=== PATIENT | female | born 1935 | race Caucasian/White ===

== ENCOUNTER 2016-07-20 14:18 | Inpatient (IN) | payer MEDICARE, OTHER ==
--- NOTE | ~2016-07-20 | CN ---
Consultation Report [facility] [address] [place]. [address] NAME: MISTY SHARPE : 35 STATUS : ADM IN PAT#: [id number] AGE: 81 ADM/REG DATE : 07/21/16 MR#: [id number] REPORT SERV DATE: 07/22/16 DICTATED BY: DONITA CONTRERAS DATE: 07/21/16 REPORT STATUS : Draft TRANSCRIBED BY: ANAT DATE: 07/21/16 CARDIOLOGY CONSULTATION DATE OF CONSULTATION: 07/21/2016 CHIEF COMPLAINT: Nausea, vomiting, and generalized weakness. REASON FOR CONSULTATION: Atrial fibrillation. SOURCE: The patient, her family, and the chart. HISTORY OF PRESENT ILLNESS: Ms. Sharpe is a very pleasant 81-year-old white woman with no significant past cardiac history. She was in her usual state of health, but over the last three to five weeks, she has noticed nausea, vomiting, diminished appetite, and generalized weakness. She has had chills recently but no fever. She has also noticed lower abdominal cramping. She has noticed decreased appetite particularly in association with taking Phenergan for the nausea and vomiting. She has not had any jaundice. No chest pain. No palpitations. She denies any GI blood loss. She has felt like she is smothering. REVIEW OF SYSTEMS: All other systems are negative. ALLERGIES: PENICILLINS AND SULFA. MEDICATIONS: At home included calcium, vitamin D, chlorthalidone, diazepam, dicyclomine, ezetimibe, hydrocodone, losartan, magnesium, meclizine, omeprazole, ondansetron, prednisone, promethazine, propranolol, rivaroxaban, and simvastatin. CARDIAC RISK FACTORS: Included hypertension, cholesterol, former tobacco. Denies diabetes or family history. SOCIAL HISTORY: The patient lives in [place], [place]. She is . She lives alone but her son lives next door. She has four children, who are alive and well. She is retired. FAMILY HISTORY: Negative for coronary artery disease at young age. PAST MEDICAL HISTORY: Significant for cervical cancer in 1978, treated with cobalt x-ray therapy, reportedly in remission. She has had hemorrhoids, small intestine surgery. She has a surgical hernia, which was not repaired; status post cataract surgery. 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 PHYSICAL EXAMINATION: Consultation Report [address] [place]. [address] NAME: MISTY SHARPE : 35 STATUS : ADM IN PAT#: [id number] AGE: 81 ADM/REG DATE : 07/21/16 MR#: [id number] REPORT SERV DATE: 07/22/16 DICTATED BY: DONITA CONTRERAS DATE: 07/21/16 REPORT STATUS : Draft TRANSCRIBED BY: ANAT DATE: 07/21/16 GENERAL: She is a well-developed, well-nourished, very elderly white woman, in mild acute respiratory distress. VITAL SIGNS: Blood pressure is 112/55, pulse 88, temperature is 98.7 degrees, and blood pressure is 112/55. HEENT: Sclerae anicteric. Lips without cyanosis. Carotids 2+ and symmetrical. No bruits. No JVD. No thyromegaly. Conjunctiva pale. LUNGS: Clear to auscultation. No use of accessory muscles. Increased respiratory rate. HEART: Regular rate and rhythm without murmur, gallop, or rub. ABDOMEN: Positive bowel sounds. Soft, nontender. Abdominal defect. EXTREMITIES: Pulses 2+ and symmetrical. No cyanosis, clubbing, or edema. BACK: No CVA tenderness. MUSCULOSKELETAL: Good tone. NEURO: Alert and oriented x3. IMAGING: The EKG earlier revealed atrial fibrillation with rapid ventricular response, otherwise, normal tracing. Telemetry now reveals sinus. LABORATORY EXAMINATION: CPK 159, MB 1.9, troponin I of 0.21. The blood gas pH 7.40, pCO2 of 30, PO2 of 117, oxygen saturation 97.9%. Sodium 140, potassium 3.8, chloride 106, CO2 of 21, glucose 91, BUN 25, creatinine 1.12, TSH of 1.59. The white count is 13.9, hemoglobin 12.2, hematocrit 35.3, and platelets 227,000. The lactate is 0.9. The urine culture, 75,000 gram negative bacilli to be identified. The CT of abdomen and pelvis reveals very large hernia defect on the right involving the lower anterior abdominal wall and anterior pelvic wall containing the majority of small bowel as well as the cecum, the ascending colon, and transverse colon, distention, fluid- filled small bowel loops within the hernia measuring up to 32 mm in diameter concerning for early or partial obstruction, gas and stool is present within the colon, chronic L1 compression fracture, mild to moderate spinal canal narrowing at the L1 superior endplate level, arthrosclerotic vascular disease, heavy calcification of the coronary arteries. The procalcitonin was 0.33 yesterday. IMPRESSION: 1. Nausea, vomiting, and weight loss. 2. Possible bowel obstruction. 3. Very large abdominal hernia. 4. Possible urinary tract infection. 5. Possible sepsis. 6. Paroxysmal atrial fibrillation, now in sinus rhythm. Probably due to the above medical problems. 7. CHADS2 score of 2 for age and hypertension. She is not currently a good candidate for anticoagulation due to possible need for surgery. The Xarelto is on hold. 8. Recurrent DVT. She was on Xarelto, held for procedures. 9. Cardiac risk factors including hypertension, cholesterol, and former tobacco. 10.Small elevation of troponin with normal CPK and MB, probably due to other medical Consultation Report [address] [address] NAME: MISTY SHARPE : 35 STATUS : ADM IN [facility]#: [id number] AGE: 81 ADM/REG DATE : 07/21/16 MR#: [id number] REPORT SERV DATE: 07/22/16 DICTATED BY: DONITA CONTRERAS DATE: 07/21/16 REPORT STATUS : Draft TRANSCRIBED BY: ANAT DATE: 07/21/16 illness. RECOMMENDATIONS: 1. Treat underlying illness. 2. Check D-dimer. 3. Agree with echocardiography. 4. EKG in sinus rhythm and again in a.m. 5. Check CPK and MB in a.m. 6. For recurrent atrial fibrillation with rapid ventricular response or hypertension, consider IV metoprolol or IV diltiazem. Additionally, her TSH was normal at 1.59. RAINA/ANAT Donita Contreras M.D. / [id number] CC: MD Antonio Whitten II
--- NOTE | ~2016-07-20 | PUL ---
[facility] [address] [place]. [address] NAME: MISTY GEE : 35 STATUS : DIS IN PAT#: [id number] AGE: 81 ADM/REG DATE : 07/21/16 MR#: [id number] REPORT SERV DATE: 07/31/16 DICTATED BY: ROSENDO BOLANOS DATE: 07/30/16 REPORT STATUS : Draft TRANSCRIBED BY: MODL DATE: 07/30/16 PULMONARY FUNCTION TEST PROCEDURE PERFORMED: Spirometry. The patient demonstrates good effort, though seems to have had some difficulty with reproducibility any of the flow volume loops. FINDINGS: FVC is 43% of predicted with an FEV1 of 0.54 liters or 32% of predicted. IMPRESSION: A very severe mixed ventilatory defect. The patient appears to have coexistence of restriction and obstruction with prolonged exhalation time. Consider formal measurement of lung volumes if clinically indicated. SHA/ANAT Rosendo Bolanos M.D. / [id number] CC: Rosi Murray MAX RUSSELL II
--- NOTE | ~2016-07-20 | EGD ---
EGD REPORT [facility] [address] [place] [address] NAME: AMBAR SHARPE : 35 STATUS : ADM IN PAT#: [id number] AGE: 81 ADM/REG DATE : 07/21/16 MR#: [id number] REPORT SERV DATE: 07/25/16 DICTATED BY: STEPHAN BURCIAGA DATE: 07/25/16 REPORT STATUS : Draft TRANSCRIBED BY: [facility] DATE: 07/25/16 Endoscopy Center Patient Name: Ambar Sharpe Date of : 1935 Attending MD: STEPHAN BURCIAGA MD Procedure Date No Time: 07/25/2016 Procedure: Upper GI endoscopy Indications: Abnormal CT of the GI tract, Nausea with vomiting Referring MD: Antonio Noyola Medicines: Monitored Anesthesia Care Complications: No immediate complications. Estimated blood loss: None. Procedure: Pre-Anesthesia Assessment: - ASA Grade Assessment: III - A patient with severe systemic disease. After obtaining informed consent, the endoscope was passed under direct vision. Throughout the procedure, the patient's blood pressure, pulse, and oxygen saturations were monitored continuously. The GIF [id number] was introduced through the mouth, and advanced to the second part of duodenum. The upper GI endoscopy was accomplished without difficulty. The patient tolerated the procedure well. Findings: The examined esophagus was normal. The entire examined stomach was normal. The examined duodenum was normal. The cardia and gastric fundus were normal on retroflexion. The exam was otherwise without abnormality. Impression: - Normal examination. Recommendation: - [facility]. - Full liquid diet. Procedure Code(s): --- Professional --- 18473, Esophagogastroduodenoscopy, flexible, transoral; diagnostic, including collection of specimen(s) by brushing or washing, when performed (separate procedure) Diagnosis Code(s): --- Professional --- R93.3, Abnormal findings on diagnostic imaging of other parts of digestive tract R11.2, Nausea with vomiting, unspecified EGD REPORT [facility] [address] [place] [address] NAME: AMBAR SHARPE : 35 STATUS : ADM IN [facility]#: [id number] AGE: 81 ADM/REG DATE : 07/21/16 MR#: [id number] REPORT SERV DATE: 07/25/16 DICTATED BY: STEPHAN BURCIAGA DATE: 07/25/16 REPORT STATUS : Draft TRANSCRIBED BY: [facility] DATE: 07/25/16 CPT copyright 2013 [employer]. All rights reserved. The codes documented in this report are preliminary and upon equalizer operator review may be revised to meet current compliance requirements. Stephan Burciaga MD STEPHAN BURCIAGA MD 07/25/2016 8:43 AM This report has been signed electronically. Number of Addenda: 0 Note Initiated On: 07/25/2016 8:14 AM Scope Withdrawal Time 0 hours 0 minutes 0 seconds [address] [address]
--- NOTE | ~2016-07-20 | DS ---
Discharge Summary [facility] [address] [facility] [place]. [address] NAME: MISTY GEE : 35 STATUS : DIS IN PAT#: [id number] AGE: 81 ADM/REG DATE : 07/21/16 MR#: [id number] REPORT SERV DATE: 07/26/16 DICTATED BY: KYLE LOPEZ DATE: 07/25/16 REPORT STATUS : Draft TRANSCRIBED BY: MODL DATE: 07/25/16 ADMISSION DATE: 07/21/2016 DISCHARGE DATE: 07/25/2016 PCP: Dr. Antonio Noyola. FINAL DIAGNOSIS: 1. Status post ileus, improved. 2. Status post Klebsiella urinary tract infection. 3. Hypertension. 4. History of left lower extremity deep venous thrombosis. 5. Paroxysmal atrial fibrillation. 6. Hyponatremia. 7. Status post hypomagnesemia. 8. Left upper lung subpleural nodule. 9. Chronic L1 compression fracture. 10.Chronic right incisional ventral hernia. CONSULTING PHYSICIAN: Dr. Gupta for Surgery, Dr. Tariq for GI, Dr. Delcid for Cardiology. DIAGNOSTIC EXAM: Abdominal acute series showing no acute cardiopulmonary abnormality. No evidence of acute abnormality within the abdomen. Chest x-ray, no acute cardiopulmonary abnormality. CAT scan of the abdomen and pelvis showing a very large hernia defect on the right involving the lower anterior abdominal wall and anterior pelvic wall containing the majority of the small bowel as well as the cecum, the ascending colon, and transverse colon. Distended fluid-filled small bowel loops within this hernia measuring up to 32 mm in diameter concerning for early or partial obstruction. Gas and stool is present within the colon. Chronic L1 compression fracture involving the superior endplate with some associated retropulsion and resulting mild to moderate spinal canal narrowing at the L1 superior endplate level. Atherosclerotic vascular disease as described including heavy atherosclerotic calcification of the coronary arteries. CTA of the chest showing no evidence for pulmonary embolus. No thoracic aortic aneurysm or dissection demonstrated. Low density slightly lobulated mass within the anterior mediastinum abutting the pulmonary outflow tract and main pulmonary artery. Suspect may represent a pericardial cyst. Mild cardiomegaly with heavy atherosclerotic calcification of the coronary arteries. Reflux of contrast into the hepatic veins and IVC may represent some right heart dysfunction, 2 x 4 mm subpleural nodule in the left upper lobe. Chronic appearing compression fracture of the L1 superior endplate with retropulsion and mild to moderate resulting spinal canal narrowing similar to CT scan of the abdomen and pelvis. Small-bowel follow-through, slow transit time of contrast through the small intestine to the colon. Colon is opacified on a 12.5 hour film. No definite obstruction. Echocardiogram showing normal left ventricular size and systolic function, EF of 60%. No regional wall motion abnormalities. Mild diastolic dysfunction. Normal right ventricular size and systolic function. Trace pericardial effusion without hemodynamic significance. Collection of medicinal fluid likely pleural effusion present. Discharge Summary [address] [place]. [address] NAME: MISTY GEE : 35 STATUS : DIS IN PAT#: [id number] AGE: 81 ADM/REG DATE : 07/21/16 MR#: [id number] REPORT SERV DATE: 07/26/16 DICTATED BY: KYLE LOPEZ DATE: 07/25/16 REPORT STATUS : Draft TRANSCRIBED BY: ANAT DATE: 07/25/16 HOSPITAL COURSE: Please refer to the H and P done by Dr. Broderick dated on 07/20/2016. Briefly, this is an 81-year-old female, who comes in for nausea, anorexia, and failure-to- thrive. The patient admitted that she has been battling some pneumonia and UTIs recently and has lost her diet and appetite since then. She is on chronic steroid for her osteoarthritis and chronic Xarelto for her left lower extremity DVT. The patient has been following up with her PCP, who did several workup and did not find anything. The patient then started having some liquid stools, not wanting to eat, and finally was brought to the emergency room. The patient had the above tests done while admitted by Dr. Broderick, and we got Dr. Gupta involved who believes that the patient does not have any surgical need at this time. We got GI to consult and they did an EGD that revealed normal findings and they signed off. Meanwhile, the CAT scan was showing something in the mediastinum. We did an echocardiogram and a cardiology consult and they did not find anything, but they believe that it might be some loculated pleural effusion. Meanwhile, the patient clinically improved. She expressed her wishes to go home and we are not sure whether the treatment for her UTI, which turns out to be Klebsiella was helping or she has a bout of enteritis, but she seemed to clinically improve and got her appetite back, so we will be discharging the patient today with the above diagnosis. She is going to continue on her home medications of Valium 5 mg at bedtime as needed, Cozaar 25 mg at bedtime, Prilosec 20 mg twice a day, Inderal 20 mg twice a day, Xarelto 15 mg with lunch, prednisone 10 mg a day, Zofran and Phenergan as needed, Bentyl 10 mg twice a day, Antivert as needed, [place] 7.5/325 twice a day p.r.n., Zocor 10 mg at bedtime, chlorthalidone 25 mg in the morning, Zetia 10 mg at bedtime, calcium plus D 600 mg a day, magnesium 400 mg a day. The patient will follow up with her PCP, Nikhil Mota and Antonio Noyola in one to two weeks. This has been explained to her in front of the daughter and grandson and they agreed and understood the plan. FREDDY/ANAT Kyle Lopez M.D. / [id number] CC: Rosi Murray M.D.
--- NOTE | ~2016-07-20 | DS ---
Discharge Summary [place] [address] [facility] [place]. [address] NAME: MISTY GEE : 35 STATUS : DIS IN PAT#: [id number] AGE: 81 ADM/REG DATE : 07/21/16 MR#: [id number] REPORT SERV DATE: 07/26/16 DICTATED BY: KYLE LOPEZ DATE: 07/25/16 REPORT STATUS : Draft TRANSCRIBED BY: ANAT DATE: 07/25/16 ADMISSION DATE: 07/21/2016 DISCHARGE DATE: 07/25/2016 ADDENDUM: TIME SPENT ON DISCHARGE: 35 minutes. FREDDY/ANAT Kyle Lopez M.D. / [id number] CC: Rosi Murray II
--- NOTE | ~2016-07-20 | CN ---
Consultation Report [facility] [address] [place]. [address] NAME: MISTY SHARPE : 35 STATUS : ADM IN PAT#: [id number] AGE: 81 ADM/REG DATE : 07/21/16 MR#: [id number] REPORT SERV DATE: 07/21/16 DICTATED BY: ANGEL YOUNGBLOOD DATE: 07/21/16 REPORT STATUS : Draft TRANSCRIBED BY: MODL DATE: 07/21/16 GI CONSULTATION DATE OF CONSULTATION: 07/21/2016 REASON FOR CONSULTATION: Evaluation and management of nausea, vomiting, anorexia, and possible bowel obstruction. HISTORY OF PRESENT ILLNESS: Ms. Sharpe is an 81-year-old female patient who has been seen by Dr. Jeff Diaz in the outpatient setting, who presented to [facility] with a chief complaint of nausea, vomiting, change in her taste, anorexia, failure to thrive. She states that for the past roughly three months, she has had a change in her taste buds. She has had nausea with some vomiting, mostly anorexia. She states at times, she is hungry, but then when she eats, she fills up really fast. Over the past year, the family states that she has lost roughly 20+ pounds. She had been using increased amounts of Phenergan over the last three to four weeks for her increasing nausea. She was seen by her primary care doctor on Sunday who decreased the amount of Phenergan that she was to be taking thinking that could be contributing to some of her problems. Secondary to persistence in symptoms as well as generalized aches and pains, she came in to the [facility] for further evaluation. She had a CT scan without contrast showing a very large hernia defect on the right side involving the lower anterior abdominal wall and anterior pelvic wall containing the majority of the small bowel, cecum, ascending and transverse colon with some distention and fluid-filled small bowel loops within the hernia, concerns for early partial small-bowel obstruction. She states that she has bowel movements, but when she does, they are mostly liquid. She had a white count of 22.8 on admission, presently 13.9. She does take Xarelto for a history of DVT, but has not had it in the past two days. At present, she is still having nausea, but no emesis. She has not had any documented fever or chills. She denies any chest pain or shortness of breath. She does have myalgias. She has been on a regimen of prednisone. Secondary to concerns of the bowel obstruction and nausea, GI was consulted to see her. No records available from our office as it has been since 2000 she was evaluated by Dr. Diaz. I have discussed with the patient as well as the patient's family that we will plan to pursue upper endoscopy tomorrow. We are going to have surgeons see her for her questionable bowel obstruction and hernia defect, begin her on some PPI, H2 inhibitors, as well as low-dose Reglan, abdominal x rays for today as well as for in the morning. 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 SOCIAL HISTORY: She lives with family. Does not use alcohol, tobacco, or illicit drugs. FAMILY HISTORY: Noncontributory from a GI standpoint. Consultation Report [address] [place]. [address] NAME: MISTY SHARPE : 35 STATUS : ADM IN [facility]#: [id number] AGE: 81 ADM/REG DATE : 07/21/16 MR#: [id number] REPORT SERV DATE: 07/21/16 DICTATED BY: ANGEL YOUNGBLOOD DATE: 07/21/16 REPORT STATUS : Draft TRANSCRIBED BY: ANAT DATE: 07/21/16 ALLERGIES: LISTED TO PENICILLIN AND SULFA. HOME MEDICATIONS: Calcium, [place], Valium, Bentyl, Zetia, [place], Cozaar, magnesium oxide, Antivert, Prilosec, Zofran, prednisone, Phenergan, Inderal, Xarelto, and Zocor. REVIEW OF SYSTEMS: A 10-point review of systems has been obtained with pertinent positives being addressed in the history of present illness. PHYSICAL EXAMINATION: VITAL SIGNS: Temperature 99.3, pulse 79, respirations 19, blood pressure 103/61. NEURO: Reveals an alert, elderly female, resting in bed with no focal deficits. GENERAL: Cooperative, in no apparent distress. Awake, alert, and oriented x3. HEAD, EARS, EYES, NOSE, AND THROAT: Anicteric. Pupils equal, round, and reactive to light and accommodation. Normocephalic, atraumatic. Poor dentition noted. NECK: No JVD. No palpable nodes. LUNGS: Diminished throughout. Normal respiratory effort exhibited. CARDIOVASCULAR SYSTEM: Regular rate and rhythm. ABDOMEN: Soft, but some mild distention. She has hypoactive bowel sounds. Right-sided hernia noted. EXTREMITIES: No edema. Normal distal pulses. SKIN: Warm, dry, and intact. PERTINENT LABORATORY DATA: Sodium 140, potassium 3.8, BUN is 25, creatinine 1.12. White count is 13.9, hemoglobin 12, hematocrit 35.3. Total bilirubin is 0.7, alkaline phosphatase 47, ALT 20, AST 23, lactate 0.9. ASSESSMENT: 1. Nausea and vomiting, chronic. 2. Anorexia and weight loss. 3. Partial small-bowel obstruction/large hernia. 4. Urinary tract infection, on Rocephin. 5. History of deep vein thrombosis, on Xarelto, last dose 07/19/2016. PLAN: 1. PPI, H2 inhibitor, as well as we will add low-dose Marinol. 2. Abdominal films today and tomorrow. 3. Low-dose Reglan. 4. Stool studies. 5. Surgical consult. 6. EGD in the morning. We will follow. Other recommendations to follow endoscopy. DG/MODL Consultation Report [address] [place]. [address] NAME: MISTY SHARPE : 35 STATUS : ADM IN [facility]#: [id number] AGE: 81 ADM/REG DATE : 07/21/16 MR#: [id number] REPORT SERV DATE: 07/21/16 DICTATED BY: ANGEL YOUNGBLOOD DATE: 07/21/16 REPORT STATUS : Draft TRANSCRIBED BY: ANAT DATE: 07/21/16 ETHAN Mazariegos / [id number] CC: MD JYOTI Whitten MAX RUSSELL II
--- NOTE | ~2016-07-20 | HP ---
History And Physical [place] [id number] [place]. [address] NAME: MISTY SHARPE : 35 STATUS : ADM Mauri PAT#: [id number] AGE: 81 ADM/REG DATE : 07/20/16 MR#: [id number] REPORT SERV DATE: 07/21/16 DICTATED BY: ROBERT GUSTAFSON DATE: 07/21/16 REPORT STATUS : Draft TRANSCRIBED BY: MODL DATE: 07/21/16 DATE OF ADMISSION: 07/20/2016 CHIEF COMPLAINT: Persistent nausea, anorexia, and failure to thrive. 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 History is obtained from the patient, her two daughters and a son who are at bedside and reviewing data available on the [employer] system. According to available data, she had been having these symptoms about three to four weeks now with persistent nausea without any significant vomiting, but with anorexia as well. She has had no abdominal pain or falls and was seen by her primary care physician, who after a complete workup said nothing was seriously wrong. Meanwhile, she has been having liquid stools with no blood. She had no appetite at all according to the family and has been refusing to eat and thus even refused to water recently. She continues to have constant nausea and weakness. She states her muscles hurt when she even stands up and the family finally decided to bring her to the emergency room to be evaluated. In the emergency room, initial workup including CT scan of the abdomen and pelvis revealed ileus versus partial small bowel obstruction and Hospitalist Service is asked to admit her for further evaluation and treatment. At the time of my evaluation, she denied any chest pain, palpitations, or orthopnea. She had no cough, hemoptysis, night sweats, or weight loss. She has not had any falls or loss of consciousness. No history of recent fevers or chills. She did have nausea as mentioned above without any significant vomiting noted. She has had diarrhea or passing liquid stools of late. No history of hematemesis, hematochezia, or hematuria. She did not have dysuria. No other history of recent travel or exposures other than those mentioned above. PAST MEDICAL HISTORY: Significant for history of essential hypertension, abdominal hernia after she had a bowel resection in the 1970s. She has a history of cervical cancer as well. She also has a history of recurrent DVTs in the leg and is on Xarelto indefinitely. She has been on prednisone therapy for osteoarthritis. SOCIAL HISTORY: She does not smoke, drink, or use recreational drugs. FAMILY HISTORY: Noncontributory. MEDICATIONS: At home were reviewed by me in the chart today and reordered by me. REVIEW OF SYSTEMS: As in history of present illness. All other systems were reviewed in detail and quite unremarkable. History And Physical [address] [address] NAME: MISTY SHARPE : 35 STATUS : ADM Mauri PAT#: [id number] AGE: 81 ADM/REG DATE : 07/20/16 MR#: [id number] REPORT SERV DATE: 07/21/16 DICTATED BY: ROBERT GUSTAFSON DATE: 07/21/16 REPORT STATUS : Draft TRANSCRIBED BY: ANAT DATE: 07/21/16 PHYSICAL EXAMINATION: GENERAL: This is a pleasant 81-year-old, not in any acute distress. HEENT: Her head is atraumatic, normocephalic. She is alert, awake, and oriented to time, place, and person. Her pupils are equal, reacting to light and accommodating. External ocular muscles are intact. Membranes are moist and pink. Sclerae are nonicteric. NECK: Supple with no jugular venous distention, lymphadenopathy, or thyromegaly. LUNGS: Clear to auscultation with no wheezes, rubs, or crackles. HEART: Sounds were regular with no murmurs, rubs, or gallops. ABDOMEN: Soft, nontender. Bowel sounds were present. EXTREMITIES: Showed no cyanosis, clubbing, or edema. NEUROLOGIC: Grossly intact. No focal sensory or motor deficits. Higher functions appeared intact. Gait was not examined. VITAL SIGNS: Her vital signs today showed a temperature of 98.6 upon arrival, pulse was 99, respirations 18 to 20 a minute, blood pressure was 136/70, oxygen saturations were 95% breathing room air. LABORATORY DATA: Reviewed on the [employer] system showed a sodium of 140, potassium 4.1, chloride 104, CO2 of 22, BUN was 31 with a creatinine of 1.31, and glucose of 90. Her calcium was 5.8, magnesium was 0.4. CBC showed a white blood cell count of 22,800, hemoglobin was 14.2, hematocrit 42.2, and platelet count was 274,000. Lactate was 1.6 today. Urinalysis showed moderate leukocyte esterase, nitrite was negative. There were 20 wbc's and occasional bacteria. Films of the chest x-ray and CT scan of the abdomen and pelvis were reviewed by me on the PACS today. However, per my interpretation, there was no lobar consolidations, pleural effusions seen on the chest x-ray. CT scan of the abdomen and pelvis films were also reviewed. Official radiology report was also reviewed. Per radiology report, there is fluid in the colon indicating diarrhea possibly secondary to enteritis. There is also a large right anterolateral abdominal hernia containing bowel loops. There is mild dilatation of the small bowel containing fluid within the hernia suspicious for partial or early obstruction secondary to adhesions. Please see report for details. IMPRESSION: 1. Nausea, vomiting. 2. Urinary tract infection. 3. Hypomagnesemia. 4. Hypocalcemia. 5. Partial small bowel obstruction versus ileus. 6. Leukocytosis. 7. Hypertension. 8. Abdominal hernia. 9. History of recurrent deep venous thrombosis on anticoagulation. 10.Chronic prednisone therapy for osteoarthritis. PLAN: We will admit Ms Sharpe to the Hospitalist Service telemetry for 24-hour observation. After cultures are drawn, start her on empiric IV antibiotics for urinary tract infection. We will go ahead and check her procalcitonin level. We will start her on IV fluids for History And Physical [address] [address] NAME: MISTY SHARPE : 35 STATUS : ADM Mauri PAT#: [id number] AGE: 81 ADM/REG DATE : 07/20/16 MR#: [id number] REPORT SERV DATE: 07/21/16 DICTATED BY: ROBERT GUSTAFSON DATE: 07/21/16 REPORT STATUS : Draft TRANSCRIBED BY: MODL DATE: 07/21/16 volume resuscitation. Check chemistry, electrolytes in the morning, and replace as needed. We will order magnesium replacement now intravenously and follow chemistry as mentioned above. We will keep her n.p.o. for now and consult Gastroenterology to see her in the morning. We will also provide intravenous Zofran and Phenergan for her symptoms. We will continue all other medications and treatments at this time and continue her Xarelto for now. I have discussed the above plans with the patient and the family. Questions were answered and they are agreeable to the above recommendations. Hospitalist Service will be following her during her stay here. /ANAT Robert Gustafson M.D. / [id number] CC: MD JYOTI Whitten [facility]
--- NOTE | ~2016-07-20 | CN ---
Consultation Report [place] [id number] [facility] [place]. [address] NAME: MISTY GEE : 35 STATUS : ADM IN [facility]#: [id number] AGE: 81 ADM/REG DATE : 07/21/16 MR#: [id number] REPORT SERV DATE: 07/23/16 DICTATED BY: KYLE ELIZABETH III DATE: 07/23/16 REPORT STATUS : Draft TRANSCRIBED BY: MODL DATE: 07/23/16 CONSULTATION DATE OF CONSULTATION: 07/22/2016 REASON FOR CONSULT: 1. Anorexia and nausea. 2. Recommendation regarding surgical management. 3. Possible small bowel obstruction. HISTORY OF PRESENT ILLNESS: I am asked to see this 81-year-old female, hospitalized for the above reasons. The patient complains of vague history of nausea and anorexia. She has a chronic right lateral abdominal wall hernia. This has been present for 20 years. She has previously been evaluated by another surgeon regarding the hernia and was felt to be at too high risk for repair of the hernia. She has had no symptoms related to the hernia. She has had no abdominal pain. The patient has history of multiple medical problems. She has had persistent nausea, but no vomiting for at least one month. She has had no fever or chills. She has had intermittent diarrhea. She has had generalized weakness. She states that she "hurts all over." The patient presented to the emergency room with CT scan of the abdomen and pelvis was performed, which showed vague evidence for possible small bowel obstruction versus ileus. PAST MEDICAL HISTORY: 1. Hypertension. 2. History of chronic incisional hernia related to previous bowel resection in 1970s. 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 3. History of cervical cancer requiring radiation therapy. 4. History of deep venous thrombosis. 5. History of osteoarthritis, steroid dependent. SOCIAL HISTORY: No history of history of tobacco or alcohol use. FAMILY HISTORY: Unremarkable. ALLERGIES: PENICILLIN AND SULFA. MEDICATIONS: Include calcium, Hygroton, Neurontin, Valium, Bentyl, Zetia, Massey, Cozaar, Antivert, Prilosec, Zofran, Deltasone, Phenergan, Inderal, Xarelto, and Zocor. REVIEW OF SYSTEMS: The patient complains of generalized weakness. She denies any specific abdominal pain. Consultation Report [facility] [address] [place]. [address] NAME: MISTY GEE : 35 STATUS : ADM IN PAT#: [id number] AGE: 81 ADM/REG DATE : 07/21/16 MR#: [id number] REPORT SERV DATE: 07/23/16 DICTATED BY: KYLE ELIZABETH III DATE: 07/23/16 REPORT STATUS : Draft TRANSCRIBED BY: MODLibby DATE: 07/23/16 PHYSICAL EXAMINATION: GENERAL: This is a weak, chronically ill-appearing female, in no acute distress. She is alert and oriented x3. VITAL SIGNS: Blood pressure 165/91, pulse 55, temperature 97.6. HEENT: Unremarkable. Cranial nerves 2 through 12 were normal. LUNGS: Clear. CARDIAC: Normal. ABDOMEN: Soft and nontender. She has a large right lateral abdominal wall incisional hernia. This hernia is reducible and completely nontender. EXTREMITIES: Unremarkable. LABORATORY DATA: Electrolytes are unremarkable. Calcium is low at 5.5. White blood cell count is elevated at 23.8 on admission, this has decreased to 13.9 today; hematocrit 35. Urine culture is positive for Klebsiella for which the patient has been started on antibiotics. CT scan of the abdomen and pelvis on admission, which I reviewed shows a large right lateral abdominal wall hernia. This hernia is clinically reducible. There are noted to be some distended fluid-filled small bowel loops within the hernia of concern for possible partial early obstruction. There was noted be an L1 compression fracture. ASSESSMENT: 1. This is an 81-year-old female with probable ileus versus partial small bowel obstruction. The patient has a large incisional hernia which is asymptomatic, chronic and completely reducible. 2. Chronic nausea and weight loss and anorexia of unclear etiology. 3. Urinary tract infection. 4. Recent onset of atrial fibrillation. 5. History of cervical cancer, treated with radiation therapy. 6. 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 7. History of recurrent deep venous thrombosis. 8. Hypertension. PLAN: The patient is stable at this time with no evidence of need for acute surgical intervention. The patient is tolerating clear liquids well. Clinically, her hernia is reducible and not symptomatic and she has no definite clinical evidence for obstruction by the radiographic findings. The patient will be extremely high risk for any surgical intervention. I believe that we should treat her conservatively. I have requested a repeat KUB. I feel this probably will resolve with nonoperative management. We will follow the patient with you. This plan has been discussed with the patient and family and their questions have been answered. They understand and agree to this as planned. J/MODL Consultation Report [facility] [address] [place]. [address] NAME: MISTY GEE : 35 STATUS : ADM IN [facility]#: [id number] AGE: 81 ADM/REG DATE : 07/21/16 MR#: [id number] REPORT SERV DATE: 07/23/16 DICTATED BY: KYLE ELIZABETH III DATE: 07/23/16 REPORT STATUS : Draft TRANSCRIBED BY: ANAT DATE: 07/23/16 Kyle Elizabeth III, M.D. / [id number] CC: Rosi Willett [facility]
[2016-07-20 14:29] LABS: BASOPHILS 0 %; BASOPHILS ABSOLUTE 0.01 10/3/uL (0.0-0.16); EOSINOPHILS 0.1 %; EOSINOPHILS ABSOLUTE 0.03 10/3/uL (0.0-0.53); ER CBC TAT 0 Hrs 05 Mins; HEMATOCRIT 42.2 % (36.0-48.0); HEMOGLOBIN 14.2 g/dL (12.0-16.0); IMMATURE GRANULOCYTES 0.6 %; IMMATURE GRANULOCYTES ABSOLUTE 0.14 10/3/uL (0.0-0.11); LYMPHOCYTES 9.7 %; LYMPHOCYTES ABSOLUTE 2.21 10/3/uL (0.67-4.30); MANUAL DIFF NO %; MEAN CORPUS HGB CONC 33.6 g/dL (32.0-36.0); MEAN CORPUSCULAR HEMOGLOB 30.7 pg (26.0-34.0); MEAN CORPUSCULAR VOLUME 91.1 fL (80-100); MEAN PLATELET VOLUME 9.2 fL (9.2-13.0); MONOCYTES 5.7 %; NEUTROPHILS 83.9 %; NEUTROPHILS ABSOLUTE 19.15 10/3/uL (2.02-8.40); PLATELET COUNT 274 10/3/uL (150-400); RBC DISTRIBUTION WIDTH 16.4 % (12.0-16.0); RED CELL COUNT 4.63 10/6/uL (4.0-5.6); WHITE BLOOD CELLS 22.8 10/3/uL (4.5-10.5)
[2016-07-20 14:37] LABS: ASCORBIC ACID (UR NOT ORDER) NEG (NEG); BILIRUBIN, URINE NEGATIVE (NEG); ER URINALYSIS TAT 0 Hrs 13 Mins; KETONE, URINE NEGATIVE (NEG); LEUKOCYTE ESTERASE(NOT OR MOD (NEG); NITRITE (URINE) NEG (NEG); WBC (NOT ORDERED) (RFLEX) 20 (0-5)
[2016-07-20 15:53] LABS: LACTATE 1.6 MMOL/L (0.3-2.4)
[2016-07-20 16:03] LABS: ALKALINE PHOSPHATASE 47 U/L (45-117); CHLORIDE, SERUM 104 MMOL/L (96-112); CREATININE 1.31 MG/DL (0.55-1.02); GFR AFRICAN AMERICAN 44 ML/MIN (>=60); GFR NON AFRICAN AMERICAN 38 ML/MIN (>=60); GLUCOSE, SERUM 90 MG/DL (60-99); SGOT(AST) 23 U/L (5-40); SGPT(ALT) 20 U/L (5-65); SODIUM, SERUM 140 MMOL/L (135-148); TOTAL BILIRUBIN 0.7 MG/DL (0-1.2); TOTAL PROTEIN 6.2 G/DL (6.0-8.5)
[2016-07-20 16:04] LABS: A/G RATIO 0.9 (0.7-1.9); BUN (BLOOD UREA NITROGEN) 31 MG/DL (6-23); CALCIUM, SERUM 5.8 MG/DL (8.5-10.4); CO2 (CARBON DIOXIDE) 22 MMOL/L (24-34); GLOBULIN 3.2 G/DL (2.5-4.1); POTASSIUM, SERUM 4.1 MMOL/L (3.5-5.3)
[2016-07-20] MEDS ORDERED: V5 PO (18:32)
[2016-07-20] MEDS ORDERED: P10 PO (18:33)
[2016-07-20] MEDS ORDERED: ZOFRAN4 PO (18:33)
[2016-07-20] MEDS ORDERED: MCZ25 PO (18:34)
[2016-07-20] MEDS ORDERED: BENTYL10 PO (18:34)
[2016-07-20] MEDS ORDERED: PR25 PO (18:35)
[2016-07-20] MEDS ORDERED: NORCO1 TA2 PO (18:35)
[2016-07-20] MEDS ORDERED: I20 PO (18:36)
[2016-07-20] MEDS ORDERED: ZOCOR10 PO (18:37)
[2016-07-20] MEDS ORDERED: COZ25 PO (18:37)
[2016-07-20] MEDS ORDERED: HYGROTON 25 MG25 MG PO (18:38)
[2016-07-20] MEDS ORDERED: ZETIA PO (18:39)
[2016-07-20] MEDS ORDERED: PRILO PO (18:39)
[2016-07-20] MEDS ORDERED: XARELTO15 MG PO (18:39)
[2016-07-20] MEDS ORDERED: CALTRA600D PO (18:40)
[2016-07-20] MEDS ORDERED: MAGOX4 PO (18:41)
[2016-07-21 05:31] LABS: BASOPHILS 0.1 %; BASOPHILS ABSOLUTE 0.01 10/3/uL (0.0-0.16); EOSINOPHILS 0.8 %; EOSINOPHILS ABSOLUTE 0.11 10/3/uL (0.0-0.53); IMMATURE GRANULOCYTES 0.4 %; IMMATURE GRANULOCYTES ABSOLUTE 0.06 10/3/uL (0.0-0.11); LYMPHOCYTES 13.7 %; LYMPHOCYTES ABSOLUTE 1.91 10/3/uL (0.67-4.30); MEAN CORPUSCULAR HEMOGLOB 30.7 pg (26.0-34.0); MEAN CORPUSCULAR VOLUME 90.3 fL (80-100); MEAN PLATELET VOLUME 9.3 fL (9.2-13.0); MONOCYTES 3.6 %; NEUTROPHILS 81.4 %; NEUTROPHILS ABSOLUTE 11.34 10/3/uL (2.02-8.40); PLATELET COUNT 227 10/3/uL (150-400); RED CELL COUNT 3.91 10/6/uL (4.0-5.6); WHITE BLOOD CELLS 13.9 10/3/uL (4.5-10.5)
[2016-07-21 05:42] LABS: HEMATOCRIT 35.3 % (36.0-48.0); MANUAL DIFF NO %
[2016-07-21 05:58] LABS: BUN (BLOOD UREA NITROGEN) 25 MG/DL (6-23); CALCIUM, SERUM 5.7 MG/DL (8.5-10.4); CHLORIDE, SERUM 106 MMOL/L (96-112); CO2 (CARBON DIOXIDE) 21 MMOL/L (24-34); CREATININE 1.12 MG/DL (0.55-1.02); GFR AFRICAN AMERICAN 53 ML/MIN (>=60); GFR NON AFRICAN AMERICAN 46 ML/MIN (>=60); GLUCOSE, SERUM 91 MG/DL (60-99); PHOSPHORUS, SERUM 3.2 MG/DL (2.5-4.5); POTASSIUM, SERUM 3.8 MMOL/L (3.5-5.3); SODIUM, SERUM 140 MMOL/L (135-148)
[2016-07-21 19:36] LABS: BE (BASE EXCESS) -5.1 MEQ/L (0 +/- 2.5); CARBOXYHEMOGLOBIN 0.2 % (0-3); DEVICE NC; HCO3 (ACTUAL BICARBONATE) 18.4 MEQ/L (23-27); HEMOBLOGIN CONTENT 13.8 G/DL (12-16); INSTRUMENT SERIAL # 11843; METHEMOGLOBIN 0.5 % (0-3); OPERATOR ID 16503; PCO2 (CO2 TENSION) 30 MMHG (35-45); PO2 (O2 TENSION) 117 MMHG (79-93); SAMPLE Arterial
[2016-07-21 19:55] LABS: CK-MB 1.9 NG/ML; CPK 159 U/L (0-200)
[2016-07-21 19:57] LABS: TROPONIN I 0.21 NG/ML (<0.05)
[2016-07-22 07:03] LABS: BASOPHILS 0.1 %; BASOPHILS ABSOLUTE 0.01 10/3/uL (0.0-0.16); EOSINOPHILS ABSOLUTE 0.26 10/3/uL (0.0-0.53); HEMATOCRIT 35.2 % (36.0-48.0); HEMOGLOBIN 11.8 g/dL (12.0-16.0); IMMATURE GRANULOCYTES 0.4 %; IMMATURE GRANULOCYTES ABSOLUTE 0.05 10/3/uL (0.0-0.11); LYMPHOCYTES 14.1 %; LYMPHOCYTES ABSOLUTE 1.84 10/3/uL (0.67-4.30); MEAN CORPUS HGB CONC 33.5 g/dL (32.0-36.0); MEAN CORPUSCULAR HEMOGLOB 30.5 pg (26.0-34.0); MEAN PLATELET VOLUME 9.1 fL (9.2-13.0); MONOCYTES 4.4 %; MONOCYTES ABSOLUTE 0.58 10/3/uL (0.21-1.20); NEUTROPHILS ABSOLUTE 10.34 10/3/uL (2.02-8.40); PLATELET COUNT 208 10/3/uL (150-400); RBC DISTRIBUTION WIDTH 15.8 % (12.0-16.0); RED CELL COUNT 3.87 10/6/uL (4.0-5.6); WHITE BLOOD CELLS 13.1 10/3/uL (4.5-10.5)
[2016-07-22 07:05] LABS: MANUAL DIFF NO %
[2016-07-22 07:07] LABS: INTERNATIONAL NORMAL RATI 1.2 UNITS (-); PROTIME (NOT ORD) 15.2 SEC (12.0-14.5)
[2016-07-22 07:22] LABS: ALKALINE PHOSPHATASE 53 U/L (45-117); CHLORIDE, SERUM 99 MMOL/L (96-112); CO2 (CARBON DIOXIDE) 22 MMOL/L (24-34); CREATININE 0.97 MG/DL (0.55-1.02); GFR AFRICAN AMERICAN 63 ML/MIN (>=60); GFR NON AFRICAN AMERICAN 55 ML/MIN (>=60); GLUCOSE, SERUM 93 MG/DL (60-99); POTASSIUM, SERUM 3.8 MMOL/L (3.5-5.3); SGOT(AST) 19 U/L (5-40); SGPT(ALT) 17 U/L (5-65); SODIUM, SERUM 135 MMOL/L (135-148); TOTAL PROTEIN 5.7 G/DL (6.0-8.5)
[2016-07-22 07:23] LABS: A/G RATIO 0.7 (0.7-1.9); ALBUMIN 2.3 G/DL (3.5-5.0); BUN (BLOOD UREA NITROGEN) 19 MG/DL (6-23); CALCIUM, SERUM 5.5 MG/DL (8.5-10.4); GLOBULIN 3.4 G/DL (2.5-4.1); TROPONIN I 0.16 NG/ML (<0.05)
[2016-07-23 08:16] LABS: BASOPHILS 0.1 %; BASOPHILS ABSOLUTE 0.01 10/3/uL (0.0-0.16); EOSINOPHILS 4.2 %; EOSINOPHILS ABSOLUTE 0.44 10/3/uL (0.0-0.53); HEMATOCRIT 36.2 % (36.0-48.0); HEMOGLOBIN 12.1 g/dL (12.0-16.0); IMMATURE GRANULOCYTES 0.3 %; IMMATURE GRANULOCYTES ABSOLUTE 0.03 10/3/uL (0.0-0.11); LYMPHOCYTES 21.7 %; LYMPHOCYTES ABSOLUTE 2.29 10/3/uL (0.67-4.30); MEAN CORPUS HGB CONC 33.4 g/dL (32.0-36.0); MEAN CORPUSCULAR HEMOGLOB 30.6 pg (26.0-34.0); MEAN CORPUSCULAR VOLUME 91.4 fL (80-100); MEAN PLATELET VOLUME 9.4 fL (9.2-13.0); MONOCYTES 6.9 %; MONOCYTES ABSOLUTE 0.73 10/3/uL (0.21-1.20); NEUTROPHILS 66.8 %; NEUTROPHILS ABSOLUTE 7.06 10/3/uL (2.02-8.40); PLATELET COUNT 245 10/3/uL (150-400); RBC DISTRIBUTION WIDTH 15.6 % (12.0-16.0); RED CELL COUNT 3.96 10/6/uL (4.0-5.6); WHITE BLOOD CELLS 10.6 10/3/uL (4.5-10.5)
[2016-07-23 08:17] LABS: MANUAL DIFF NO %
[2016-07-23 08:27] LABS: ALBUMIN 2.5 G/DL (3.5-5.0); CHLORIDE, SERUM 97 MMOL/L (96-112); CO2 (CARBON DIOXIDE) 21 MMOL/L (24-34); CREATININE 0.91 MG/DL (0.55-1.02); GFR AFRICAN AMERICAN 69 ML/MIN (>=60); GFR NON AFRICAN AMERICAN 59 ML/MIN (>=60); GLUCOSE, SERUM 80 MG/DL (60-99); POTASSIUM, SERUM 3.8 MMOL/L (3.5-5.3); SODIUM, SERUM 131 MMOL/L (135-148)
[2016-07-23 08:32] LABS: BUN (BLOOD UREA NITROGEN) 14 MG/DL (6-23); CALCIUM, SERUM 5.9 MG/DL (8.5-10.4); PHOSPHORUS, SERUM 2.2 MG/DL (2.5-4.5)
[2016-07-23 09:25] LABS: PROCALCITONIN 0.13 ng/mL (<0.5)
[2016-07-24 06:58] LABS: ALBUMIN 2.3 G/DL (3.5-5.0); BASOPHILS 0.2 %; BASOPHILS ABSOLUTE 0.02 10/3/uL (0.0-0.16); BUN (BLOOD UREA NITROGEN) 11 MG/DL (6-23); CHLORIDE, SERUM 93 MMOL/L (96-112); CO2 (CARBON DIOXIDE) 25 MMOL/L (24-34); CREATININE 0.91 MG/DL (0.55-1.02); EOSINOPHILS 6.8 %; EOSINOPHILS ABSOLUTE 0.56 10/3/uL (0.0-0.53); GFR AFRICAN AMERICAN 69 ML/MIN (>=60); GFR NON AFRICAN AMERICAN 59 ML/MIN (>=60); GLUCOSE, SERUM 83 MG/DL (60-99); HEMATOCRIT 37.5 % (36.0-48.0); HEMOGLOBIN 12.4 g/dL (12.0-16.0); IMMATURE GRANULOCYTES 0.5 %; IMMATURE GRANULOCYTES ABSOLUTE 0.04 10/3/uL (0.0-0.11); LYMPHOCYTES 23.9 %; LYMPHOCYTES ABSOLUTE 1.98 10/3/uL (0.67-4.30); MEAN CORPUS HGB CONC 33.1 g/dL (32.0-36.0); MEAN CORPUSCULAR HEMOGLOB 30.1 pg (26.0-34.0); MEAN PLATELET VOLUME 9.3 fL (9.2-13.0); MONOCYTES 9.4 %; MONOCYTES ABSOLUTE 0.78 10/3/uL (0.21-1.20); NEUTROPHILS 59.2 %; NEUTROPHILS ABSOLUTE 4.89 10/3/uL (2.02-8.40); PHOSPHORUS, SERUM 2.2 MG/DL (2.5-4.5); PLATELET COUNT 247 10/3/uL (150-400); POTASSIUM, SERUM 3.7 MMOL/L (3.5-5.3); RBC DISTRIBUTION WIDTH 15.8 % (12.0-16.0); RED CELL COUNT 4.12 10/6/uL (4.0-5.6); SODIUM, SERUM 131 MMOL/L (135-148); WHITE BLOOD CELLS 8.3 10/3/uL (4.5-10.5)
[2016-07-24 06:59] LABS: CALCIUM, SERUM 6.2 MG/DL (8.5-10.4)
[2016-07-24 07:01] LABS: MANUAL DIFF NO %
[2016-07-25 06:19] LABS: BASOPHILS 0.2 %; BASOPHILS ABSOLUTE 0.01 10/3/uL (0.0-0.16); EOSINOPHILS 2.6 %; EOSINOPHILS ABSOLUTE 0.16 10/3/uL (0.0-0.53); HEMATOCRIT 36.2 % (36.0-48.0); HEMOGLOBIN 12.1 g/dL (12.0-16.0); IMMATURE GRANULOCYTES 0.8 %; IMMATURE GRANULOCYTES ABSOLUTE 0.05 10/3/uL (0.0-0.11); LYMPHOCYTES 32.6 %; LYMPHOCYTES ABSOLUTE 1.98 10/3/uL (0.67-4.30); MEAN CORPUS HGB CONC 33.4 g/dL (32.0-36.0); MEAN CORPUSCULAR HEMOGLOB 30.5 pg (26.0-34.0); MEAN CORPUSCULAR VOLUME 91.2 fL (80-100); MEAN PLATELET VOLUME 9.2 fL (9.2-13.0); MONOCYTES 11.2 %; MONOCYTES ABSOLUTE 0.68 10/3/uL (0.21-1.20); NEUTROPHILS 52.6 %; PLATELET COUNT 243 10/3/uL (150-400); RBC DISTRIBUTION WIDTH 15.3 % (12.0-16.0); RED CELL COUNT 3.97 10/6/uL (4.0-5.6); WHITE BLOOD CELLS 6.1 10/3/uL (4.5-10.5)
[2016-07-25 06:21] LABS: MANUAL DIFF NO %
[2016-07-25 06:23] LABS: PROTIME (NOT ORD) 12.7 SEC (12.0-14.5)
[2016-07-25 06:31] LABS: BUN (BLOOD UREA NITROGEN) 13 MG/DL (6-23); CHLORIDE, SERUM 93 MMOL/L (96-112); CO2 (CARBON DIOXIDE) 26 MMOL/L (24-34); CREATININE 1.23 MG/DL (0.55-1.02); GFR AFRICAN AMERICAN 48 ML/MIN (>=60); GFR NON AFRICAN AMERICAN 41 ML/MIN (>=60); GLUCOSE, SERUM 80 MG/DL (60-99); POTASSIUM, SERUM 4.1 MMOL/L (3.5-5.3); SODIUM, SERUM 133 MMOL/L (135-148)
[2016-07-25 06:32] LABS: CALCIUM, SERUM 7.3 MG/DL (8.5-10.4); PHOSPHORUS, SERUM 3.8 MG/DL (2.5-4.5)
[2016-07-25] MEDS ORDERED: PROAIR HFA INH (15:51)
[2016-07-25] MEDS ORDERED: MIRALAX POWDER1 PKT PO (15:56)
[2016-10-30] MEDS ORDERED: ZOCOR10 PO (01:48)
[2016-10-30] MEDS ORDERED: PRILO PO ×2 (01:49→11:12)
[2016-10-30] MEDS ORDERED: ZETIA PO ×2 (01:51→11:13)
[2016-10-30] MEDS ORDERED: I40 PO (01:53)
[2016-10-30] MEDS ORDERED: CALTRAT600 PO (01:54)
[2016-10-30] MEDS ORDERED: XARELTO15 MG PO ×2 (01:55→11:14)
[2016-10-30] MEDS ORDERED: HYGROTON 25 MG25 MG PO (11:12)
[2016-10-30] MEDS ORDERED: ZOFRAN4 PO (11:13)
[2016-10-30] MEDS ORDERED: P5 PO (11:13)
[2016-10-30] MEDS ORDERED: SYN.025B PO (11:14)
[2016-10-30] MEDS ORDERED: V5 PO (11:15)
[2016-10-30] MEDS ORDERED: CRESTOR10 PO (11:15)
[2016-10-30] MEDS ORDERED: NORCO1 TA2 PO (11:15)
[2016-10-30] MEDS ORDERED: MAGOX4 PO (11:16)
[2016-10-30] MEDS ORDERED: VITAMIN D31000 UNIT PO (11:16)
[2016-10-30] MEDS ORDERED: CALTRA600D PO (11:16)
[2016-10-30] MEDS ORDERED: BENGAY TOP (11:17)
[2016-10-30] MEDS ORDERED: PROPRANOLOL (11:19)
[2016-10-30] MEDS ORDERED: LOP25 PO (11:27)
== END 2016-07-25 17:32 | disposition home health service (06) | DRG 394 ==
LOC: ER 14:18 → 2SO 19:58
PROVIDERS: Emergency Medicine; Hospitalist; Internal Medicine Gastroenterology; Internal Medicine Pulmonary Disease; Nurse Practitioner Family
PROC: 0DJ08ZZ Inspection of Upper Intestinal Tract, Via Natural or Artificial Opening Endoscopic (ICD-10-PCS; principal; 2016-07-25 08:00)
DX: K43.0 Incisional hernia with obstruction, without gangrene (principal); N39.0 Urinary tract infection, site not specified; R64 Cachexia; K56.7 Ileus, unspecified; E87.1 Hypo-osmolality and hyponatremia; I82.4Z9 Acute embolism and thrombosis of unspecified deep veins of unspecified distal lower extremity; E23.0 Hypopituitarism; M48.56XA Collapsed vertebra, not elsewhere classified, lumbar region, initial encounter for fracture; E83.42 Hypomagnesemia; I48.0 Paroxysmal atrial fibrillation; E83.51 Hypocalcemia; I10 Essential (primary) hypertension; M19.90 Unspecified osteoarthritis, unspecified site; J44.9 Chronic obstructive pulmonary disease, unspecified; K46.9 Unspecified abdominal hernia without obstruction or gangrene; I25.10 Atherosclerotic heart disease of native coronary artery without angina pectoris; E78.00 Pure hypercholesterolemia, unspecified; B96.1 Klebsiella pneumoniae [K. pneumoniae] as the cause of diseases classified elsewhere; R62.7 Adult failure to thrive; Z68.23 Body mass index [BMI] 23.0-23.9, adult; Z85.41 Personal history of malignant neoplasm of cervix uteri; Z86.718 Personal history of other venous thrombosis and embolism; Z88.1 Allergy status to other antibiotic agents; Z88.2 Allergy status to sulfonamides; Z87.891 Personal history of nicotine dependence; Z79.52 Long term (current) use of systemic steroids; Z88.0 Allergy status to penicillin
CPT/HCPCS: 36600; 71010; 71275; 74000; 74020; 74022; 74176; 74250; 80048; 80053; 80069; 81001; 82550; 82553; 82805; 83605; 83690; 83735; 84100; 84145; 84443; 84484; 85025; 85379; 85610; 85730; 87040; 87077; 87086; 87186; 93005; 93306; 94010; 96374; 96375; 96376; 99285; A9270-GY; C9113; J0360; J0690; J2405; J2765; Q9967